=== PATIENT | male | born 1970 | race Caucasian/White ===

== ENCOUNTER 2018-11-09 09:00 | Outpatient (RCR) | payer OTHER, MEDICAID, SELFPAY ==
--- NOTE | 2018-10-03 12:56 | PT.OIE ---
Current Diagnoses Malignant neoplasm of urinary organ, unspecified (09/28/18) Provider Visit Care Team Role Provider Type Prashant Felix MD Family Provider Physician Primary Care Provider Specialty: Family Practice Address: [address] [place] [address], [id number] Email: JEY Amado Attending Provider Non-Staff Specialty: Medical Address: [address] [place] [address], [place], [phone] Email: Physical Therapy Initial Evaluation PT-OP-A Visit Information Start: 10/02/18 17:03 Freq: Status: Active Protocol: Document 09/28/18 09:00 [facility] (Rec: 10/02/18 17:34 [facility] [email or web address]) Out-Patient Physical Therapy Visit Information Visit Information Visit Type Initial Evaluation Visit Start Time 09:00 Visit Stop Time 09:45 Total Visit Minutes 45 Visit Number 1 Evaluation Information Evaluation Date 09/28/18 PT-OP-B Current Condition Start: 10/02/18 17:03 Freq: Status: Active Protocol: Document 09/28/18 09:00 [facility] (Rec: 10/02/18 17:34 [facility] [email or web address]) Current Condition History of Current Condition Onset Date June 2017 Current Complaints urinary urgency and frequency History of Current Condition 48 year old male who is being treated for stage 4 bladder cancer. The patient was previously seen in PT one year ago and was sent for further testing due to the nature of his symptoms. He is currently in a clinical trial with [facility] and is taking a targeted chemo therapy drug. This he notes is working for him and as of the last scan that was done the cancer was 2/3 amount reduced. He reports that his urinary symptoms are much improved and he is only getting up 2-3 times per night now. This current treatment took awhile to get to as he did a trial of Chemo and radiation at [facility] however his cancer was spreading and he was referred to [facility]. During this time the cancer spread to his right pelvis and he sustained a pelvic fracture. He did receive PT in [place] for this fracture and he is feeling overall stronger. He reprots he was able to compete a 7 mile hike a few weeks ago. He does note tightness in the groin region and is unable to sit cross legged like he used to be able to due. His last radiation was performed in november. Future Testing and Treatments Planned bladder scans planned for continued watch on the cancer Treatment Goals Patient/Caregiver Goals To reduce tightness of the pelvis region and continue to strengthen s/p pelvic fracture and to continue to reduce voiding frequency and urgency PT-OP-F Manual Assessment Start: 10/02/18 17:03 Freq: Status: Active Protocol: Document 09/28/18 09:00 [facility] (Rec: 10/02/18 17:34 [facility] [email or web address]) Manual Assessments Soft Tissue Assessment Soft Tissue Mobility Assessment myofascial tightness across the suprapubic fascia and lower abdominal wall Other Manual Assessments Other Manual Assessments decreased flexibility of the right iliopsoas and right adductors PT-OP-I Pelvic Floor Start: 10/02/18 17:03 Freq: Status: Active Protocol: Document 09/28/18 09:00 [facility] (Rec: 10/02/18 17:34 [facility] [email or web address]) Pelvic Floor Assessment Urine Urinary Symptoms Urge Sensation PT-OP-M Strength Start: 10/03/18 11:57 Freq: Status: Active Protocol: Document 09/28/18 11:57 [facility] (Rec: 10/03/18 11:58 [facility] [email or web address]) Hip Strength Hip Manual Muscle Testing Right Extension (S1) 4 Good Abduction 3+ Fair+ External Rotation 3+ Fair+ Knee Strength Knee Manual Muscle Testing Right Flexion (S2) 4- Good- PT-OP-Q Treatments Start: 10/02/18 17:03 Freq: Status: Active Protocol: Document 09/28/18 11:55 [facility] (Rec: 10/03/18 11:56 [facility] [email or web address]) Therapeutic Exercises Other Exercises 4 Other Exercise Name prone hip extension 3 Other Exercise Name prone press up 2 Other Exercise Name laina stretch 1 Other Exercise Name half kneeling hip flexor stretch PT-OP-T Assessment and Plan Start: 10/02/18 17:03 Freq: Status: Active Protocol: Document 09/28/18 09:00 [facility] (Rec: 10/02/18 17:34 [facility] [email or web address]) Physical Therapy Assessment Rehab Potential Rehabilitation Potential Good Evaluation Complexity Number of Personal Factors/Comorbidities 0 Number of Body Systems Impaired 1-2 Clinical Presentation at Evaluation Stable Impairments Impairments Activity Tolerance Gait Soft Tissue Mobility Strength Tone Goals Three Impairment myofascial tightness and restrictions across the abdominal fascia Retirement Goal (LTG) improve myofascial mobility with stretches across the abdominal fascia LTG Duration 8 weeks Two Impairment decreased flexibility of the right iliopsoas and adductors Short Term Goal (STG) Ottoniel is instructed in a home flexibility program to improve length of the iliopsoas and adductors STG Duration 6 weeks One Impairment urinary frequency/urgency with Ottoniel waking up 3-4 times/ night to void [employer] Machine [employer]uer Goal (LTG) Ottoniel reports decreased frequency and urgency and is waking only 1 time per night LTG Duration 8 weeks Assessment Summary Assessment Ottoniel presents to Physical therapy with symptoms of urinary frequency and urgency with Metastasized bladder cancer. He is currenty undergoing a clinical trial of target chemotherapy for the bladder cancer and his symptoms are improving. He reports that even from a month ago when he made his PT appointment his symptoms of frequency and urgency are reducing. He presents with a tightness across the suprapubic and lower abdominal wall myofascial tissue. He does have weakness in the right gluteus medius and gluteus sabino that is residual from his pelvic fracture and he is tighter in the right iliopsas and adductor musculature. He is able to faciltate a pelvic floor contraction, internal assessment was not performed today. Treatment will focus on stretches for the abdominal wall and hip musculature, bladder retraining, urge deference tech, and hip strengthening Physical Therapy Plan Frequency and Duration Frequency of Treatment 1x/Week Duration of Treatment 8 weeks Plan of Care Start Date 09/28/18 Plan of Care End Date 11/23/18 Therapeutic Interventions Therapeutic Interventions Home Exercise Program Manual Therapy Neuromuscular Re-education Patient/Caregiver Education Self-Care/Home Management Therapeutic Exercises Modalities Biofeedback
--- NOTE | 2018-10-03 12:57 | PT.OPPOC ---
Current Diagnoses Malignant neoplasm of urinary organ, unspecified (09/28/18) Provider Visit Care Team Role Provider Type Prashant Felix MD Family Provider Physician Primary Care Provider Specialty: Family Practice Address: [address] [place] [address], [id number] Email: JEY Amado Attending Provider Non-Staff Specialty: Medical Address: [address] [place] [address], [phone] Email: Plan Of Care PT-OP-T Assessment and Plan Start: 10/02/18 17:03 Freq: Status: Active Protocol: Document 09/28/18 09:00 [facility] (Rec: 10/02/18 17:34 [facility] [email or web address]) Physical Therapy Assessment Rehab Potential Rehabilitation Potential Good Evaluation Complexity Number of Personal Factors/Comorbidities 0 Number of Body Systems Impaired 1-2 Clinical Presentation at Evaluation Stable Impairments Impairments Activity Tolerance Gait Soft Tissue Mobility Strength Tone Goals Three Impairment myofascial tightness and restrictions across the abdominal fascia Parlor Maid Goal (LTG) improve myofascial mobility with stretches across the abdominal fascia LTG Duration 8 weeks Two Impairment decreased flexibility of the right iliopsoas and adductors Short Term Goal (STG) Ottoniel is instructed in a home flexibility program to improve length of the iliopsoas and adductors STG Duration 6 weeks One Impairment urinary frequency/urgency with Ottoniel waking up 3-4 times/ night to void Penitentiary Goal (LTG) Ottoniel reports decreased frequency and urgency and is waking only 1 time per night LTG Duration 8 weeks Assessment Summary Assessment Ottoniel presents to Physical therapy with symptoms of urinary frequency and urgency with Metastasized bladder cancer. He is currenty undergoing a clinical trial of target chemotherapy for the bladder cancer and his symptoms are improving. He reports that even from a month ago when he made his PT appointment his symptoms of frequency and urgency are reducing. He presents with a tightness across the suprapubic and lower abdominal wall myofascial tissue. He does have weakness in the right gluteus medius and gluteus sabino that is residual from his pelvic fracture and he is tighter in the right iliopsas and adductor musculature. He is able to faciltate a pelvic floor contraction, internal assessment was not performed today. Treatment will focus on stretches for the abdominal wall and hip musculature, bladder retraining, urge deference tech, and hip strengthening Physical Therapy Plan Frequency and Duration Frequency of Treatment 1x/Week Duration of Treatment 8 weeks Plan of Care Start Date 09/28/18 Plan of Care End Date 11/23/18 Therapeutic Interventions Therapeutic Interventions Home Exercise Program Manual Therapy Neuromuscular Re-education Patient/Caregiver Education Self-Care/Home Management Therapeutic Exercises Modalities Biofeedback Plan of Care Dates Plan of Care Start Date 09/28/18 Plan of Care End Date 11/23/18 Please Sign and Return: I have reviewed this Plan of Care and certify that the skilled therapy services above are required to meet the patient?s needs. Physician Signature Date Printed Name and Credentials Clinical Instructor Signature Printed Name and Credentials
--- NOTE | 2018-10-17 11:44 | PT.OTN ---
Current Diagnoses Malignant neoplasm of urinary organ, unspecified (10/17/18) Physical Therapy Treatment Note PT-OP-A Visit Information Start: 10/02/18 17:03 Freq: Status: Active Protocol: Document 10/17/18 11:34 [facility] (Rec: 10/17/18 11:44 [facility] [email or web address]) Out-Patient Physical Therapy Visit Information Visit Information Visit Type Treatment Note Visit Start Time 10:30 Visit Stop Time 11:15 Total Visit Minutes 45 Visit Number 2 PT-OP-B Current Condition Start: 10/02/18 17:03 Freq: Status: Active Protocol: Document 09/28/18 09:00 [facility] (Rec: 10/02/18 17:34 [facility] [email or web address]) Current Condition History of Current Condition Onset Date June 2017 Current Complaints urinary urgency and frequency History of Current Condition 48 year old male who is being treated for stage 4 bladder cancer. The patient was previously seen in PT one year ago and was sent for further testing due to the nature of his symptoms. He is currently in a clinical trial with [facility] and is taking a targeted chemo therapy drug. This he notes is working for him and as of the last scan that was done the cancer was 2/3 amount reduced. He reports that his urinary symptoms are much improved and he is only getting up 2-3 times per night now. This current treatment took awhile to get to as he did a trial of Chemo and radiation at [facility] however his cancer was spreading and he was referred to [facility]. During this time the cancer spread to his right pelvis and he sustained a pelvic fracture. He did receive PT in [place] for this fracture and he is feeling overall stronger. He reprots he was able to compete a 7 mile hike a few weeks ago. He does note tightness in the groin region and is unable to sit cross legged like he used to be able to due. His last radiation was performed in november. Future Testing and Treatments Planned bladder scans planned for continued watch on the cancer Treatment Goals Patient/Caregiver Goals To reduce tightness of the pelvis region and continue to strengthen s/p pelvic fracture and to continue to reduce voiding frequency and urgency PT-OP-F Manual Assessment Start: 10/02/18 17:03 Freq: Status: Active Protocol: Document 09/28/18 09:00 [facility] (Rec: 10/02/18 17:34 [facility] [email or web address]) Manual Assessments Soft Tissue Assessment Soft Tissue Mobility Assessment myofascial tightness across the suprapubic fascia and lower abdominal wall Other Manual Assessments Other Manual Assessments decreased flexibility of the right iliopsoas and right adductors PT-OP-I Pelvic Floor Start: 10/02/18 17:03 Freq: Status: Active Protocol: Document 09/28/18 09:00 [facility] (Rec: 10/02/18 17:34 [facility] [email or web address]) Pelvic Floor Assessment Urine Urinary Symptoms Urge Sensation PT-OP-M Strength Start: 10/03/18 11:57 Freq: Status: Active Protocol: Document 09/28/18 11:57 [facility] (Rec: 10/03/18 11:58 [facility] [email or web address]) Hip Strength Hip Manual Muscle Testing Right Extension (S1) 4 Good Abduction 3+ Fair+ External Rotation 3+ Fair+ Knee Strength Knee Manual Muscle Testing Right Flexion (S2) 4- Good- PT-OP-Q Treatments Start: 10/02/18 17:03 Freq: Status: Active Protocol: Document 10/17/18 11:34 [facility] (Rec: 10/17/18 11:44 [facility] [email or web address]) Therapeutic Exercises Supine Exercises 1 Supine Exercise Name pelvic floor long holds 10 seconds on 10 seconds off Reps/Minutes x 10 Comments focus on the relaxation Sidelying Exercises 1 Sidelying Exercise Name clam shells Reps/Minutes 3 x 10 reps Other Exercises 7 Other Exercise Name foam roll stretch Reps/Minutes 2-3 minute hold 6 Other Exercise Name quadraped with TA engagement and opp arm opp leg Reps/Minutes x 10 5 Other Exercise Name quadruped cat cow Reps/Minutes x 10 4 Other Exercise Name prone hip extension 3 Other Exercise Name prone press up 2 Other Exercise Name laina stretch 1 Other Exercise Name half kneeling hip flexor stretch PT-OP-T Assessment and Plan Start: 10/02/18 17:03 Freq: Status: Active Protocol: Document 10/17/18 11:34 [facility] (Rec: 10/17/18 11:44 [facility] [email or web address]) Physical Therapy Assessment Assessment Summary Assessment elevated resting tone initially on EMG biofeedback at 5.0 uv, decreased endurance holding pelvic floor contractions. Resting tone did decrease with EMG biofeedback and awareness Ottoniel could really feel all the stretches to open up the anterior pelvic fascia. The plan is for him to come in every few weeks due to [place] [address] and he felt that he could work on the exercises and then check back in for modifications or additions to his program Physical Therapy Plan Frequency and Duration Frequency of Treatment 1x/Week Duration of Treatment 8 weeks Plan of Care Start Date 09/28/18 Plan of Care End Date 11/23/18 Therapeutic Interventions Therapeutic Interventions Home Exercise Program Manual Therapy Neuromuscular Re-education Patient/Caregiver Education Self-Care/Home Management Therapeutic Exercises Modalities Biofeedback Next Visit Focus/Plan Next Note Type Treatment Note Next Visit Plan review home exercise program and recheck resting tone of the pelvic floor musculature next visit
--- NOTE | 2018-11-09 13:10 | PT.OTN ---
Current Diagnoses Malignant neoplasm of urinary organ, unspecified (11/09/18) Physical Therapy Treatment Note PT-OP-A Visit Information Start: 10/02/18 17:03 Freq: Status: Active Protocol: Document 11/09/18 13:05 [facility] (Rec: 11/09/18 13:10 [facility] [email or web address]) Out-Patient Physical Therapy Visit Information Visit Information Visit Type Treatment Note Visit Start Time 09:00 Visit Stop Time 09:45 Total Visit Minutes 45 Visit Number 3 Evaluation Information Evaluation Date 09/28/18 PT-OP-B Current Condition Start: 10/02/18 17:03 Freq: Status: Active Protocol: Document 09/28/18 09:00 [facility] (Rec: 10/02/18 17:34 [facility] [email or web address]) Current Condition History of Current Condition Onset Date June 2017 Current Complaints urinary urgency and frequency History of Current Condition 48 year old male who is being treated for stage 4 bladder cancer. The patient was previously seen in PT one year ago and was sent for further testing due to the nature of his symptoms. He is currently in a clinical trial with [facility] and is taking a targeted chemo therapy drug. This he notes is working for him and as of the last scan that was done the cancer was 2/3 amount reduced. He reports that his urinary symptoms are much improved and he is only getting up 2-3 times per night now. This current treatment took awhile to get to as he did a trial of Chemo and radiation at [facility] however his cancer was spreading and he was referred to [facility]. During this time the cancer spread to his right pelvis and he sustained a pelvic fracture. He did receive PT in [place] for this fracture and he is feeling overall stronger. He reprots he was able to compete a 7 mile hike a few weeks ago. He does note tightness in the groin region and is unable to sit cross legged like he used to be able to due. His last radiation was performed in november. Future Testing and Treatments Planned bladder scans planned for continued watch on the cancer Treatment Goals Patient/Caregiver Goals To reduce tightness of the pelvis region and continue to strengthen s/p pelvic fracture and to continue to reduce voiding frequency and urgency PT-OP-F Manual Assessment Start: 10/02/18 17:03 Freq: Status: Active Protocol: Document 09/28/18 09:00 [facility] (Rec: 10/02/18 17:34 [facility] [email or web address]) Manual Assessments Soft Tissue Assessment Soft Tissue Mobility Assessment myofascial tightness across the suprapubic fascia and lower abdominal wall Other Manual Assessments Other Manual Assessments decreased flexibility of the right iliopsoas and right adductors PT-OP-I Pelvic Floor Start: 10/02/18 17:03 Freq: Status: Active Protocol: Document 09/28/18 09:00 [facility] (Rec: 10/02/18 17:34 [facility] [email or web address]) Pelvic Floor Assessment Urine Urinary Symptoms Urge Sensation PT-OP-M Strength Start: 10/03/18 11:57 Freq: Status: Active Protocol: Document 09/28/18 11:57 [facility] (Rec: 10/03/18 11:58 [facility] [email or web address]) Hip Strength Hip Manual Muscle Testing Right Extension (S1) 4 Good Abduction 3+ Fair+ External Rotation 3+ Fair+ Knee Strength Knee Manual Muscle Testing Right Flexion (S2) 4- Good- PT-OP-Q Treatments Start: 10/02/18 17:03 Freq: Status: Active Protocol: Document 11/09/18 13:05 [facility] (Rec: 11/09/18 13:10 [facility] [email or web address]) Therapeutic Exercises Supine Exercises 1 Supine Exercise Name pelvic floor long holds 10 seconds on 10 seconds off Reps/Minutes x 5 Comments in prone Prone Exercises 1 Prone Exercise Name cobra stretch Sidelying Exercises 1 Sidelying Exercise Name clam shells Reps/Minutes 3 x 10 reps Other Exercises 9 Other Exercise Name single leg squats with cables for support 8 Other Exercise Name standing squats 7 Other Exercise Name foam roll stretch Reps/Minutes 2-3 minute hold 6 Other Exercise Name quadraped with TA engagement and opp arm opp leg Reps/Minutes x 10 5 Other Exercise Name quadruped cat cow Reps/Minutes x 10 1 Other Exercise Name half kneeling hip flexor stretch PT-OP-T Assessment and Plan Start: 10/02/18 17:03 Freq: Status: Active Protocol: Document 11/09/18 13:05 [facility] (Rec: 11/09/18 13:10 [facility] [email or web address]) Physical Therapy Assessment Assessment Summary Assessment Ottoniel did not have his electrode with him today so EMG biofeedback was not performed. He is getting a good amount of stretch from the foam roll and from cobra stretch. He is still having bladder issues but has been working on delaying the need to void Physical Therapy Plan Frequency and Duration Frequency of Treatment 1x/Week Duration of Treatment 8 weeks Plan of Care Start Date 09/28/18 Plan of Care End Date 11/23/18 Therapeutic Interventions Therapeutic Interventions Home Exercise Program Manual Therapy Neuromuscular Re-education Patient/Caregiver Education Self-Care/Home Management Therapeutic Exercises Modalities Biofeedback Next Visit Focus/Plan Next Note Type Treatment Note Next Visit Plan review home exercise program and recheck resting tone of the pelvic floor musculature next visit
--- NOTE | 2019-10-08 12:09 | PT.OPDS ---
Current Diagnoses Malignant neoplasm of urinary organ, unspecified (11/09/18) Visit Care Team Role Provider Type Prashant Felix MD Family Provider Physician Primary Care Provider Specialty: Family Practice Address: [address] [place] [address], [id number] Email: JEY Amado Attending Provider Non-Staff Specialty: Medical Address: [address] [place] [address], [place], [address] Email: Visit Number Visit Number 3 Discharge Summary PT-OP-B Current Condition Start: 10/02/18 17:03 Freq: Status: Active Protocol: Document 09/28/18 09:00 [facility] (Rec: 10/02/18 17:34 AM[facility] [email or web address]) Current Condition History of Current Condition Onset Date June 2017 Current Complaints urinary urgency and frequency History of Current Condition 48 year old male who is being treated for stage 4 bladder cancer. The patient was previously seen in PT one year ago and was sent for further testing due to the nature of his symptoms. He is currently in a clinical trial with [facility] and is taking a targeted chemo therapy drug. This he notes is working for him and as of the last scan that was done the cancer was 2/3 amount reduced. He reports that his urinary symptoms are much improved and he is only getting up 2-3 times per night now. This current treatment took awhile to get to as he did a trial of Chemo and radiation at [facility] however his cancer was spreading and he was referred to [facility]. During this time the cancer spread to his right pelvis and he sustained a pelvic fracture. He did receive PT in [place] for this fracture and he is feeling overall stronger. He reprots he was able to compete a 7 mile hike a few weeks ago. He does note tightness in the groin region and is unable to sit cross legged like he used to be able to due. His last radiation was performed in november. Future Testing and Treatments Planned bladder scans planned for continued watch on the cancer Treatment Goals Patient/Caregiver Goals To reduce tightness of the pelvis region and continue to strengthen s/p pelvic fracture and to continue to reduce voiding frequency and urgency PT-OP-F Manual Assessment Start: 10/02/18 17:03 Freq: Status: Active Protocol: Document 09/28/18 09:00 AM[facility] (Rec: 10/02/18 17:34 AMH [email or web address]) Manual Assessments Soft Tissue Assessment Soft Tissue Mobility Assessment myofascial tightness across the suprapubic fascia and lower abdominal wall Other Manual Assessments Other Manual Assessments decreased flexibility of the right iliopsoas and right adductors PT-OP-I Pelvic Floor Start: 10/02/18 17:03 Freq: Status: Active Protocol: Document 09/28/18 09:00 AMH (Rec: 10/02/18 17:34 AMH [email or web address]) Pelvic Floor Assessment Urine Urinary Symptoms Urge Sensation PT-OP-M Strength Start: 10/03/18 11:57 Freq: Status: Active Protocol: Document 09/28/18 11:57 AMH (Rec: 10/03/18 11:58 AMH [email or web address]) Hip Strength Hip Manual Muscle Testing Right Extension (S1) 4 Good Abduction 3+ Fair+ External Rotation 3+ Fair+ Knee Strength Knee Manual Muscle Testing Right Flexion (S2) 4- Good- PT-OP-T Assessment and Plan Start: 10/02/18 17:03 Freq: Status: Active Protocol: Document 10/08/19 12:09 AMH (Rec: 10/08/19 12:09 AMH [email or web address]) Physical Therapy Plan Discharge Physical Therapy Discharge Reasons No Longer Attending PT Discharge Comments pt has not been seen in PT in the last 10 months. he will be discharged at this time
== END 2019-10-12 11:26 ==
LOC: PHYS 09:00
PROVIDERS: Family Provider Family Medicine; PCP Family Medicine; Visit Provider Nurse Practitioner
DX: C68.9 Malignant neoplasm of urinary organ, unspecified (principal)
CPT/HCPCS: 97110; 97161

== ENCOUNTER 2019-09-10 14:43 | Emergency (ER) | payer OTHER, MEDICAID, SELFPAY ==
[2019-09-10 14:52] VITALS: BP 97/65; PULSE 105; RESP 18; TEMP 35.8; O2SAT 97; BMI 23.5
[2019-09-10 15:28] LABS: Hematocrit 28.5 % (41-53); Hemoglobin 9.2 g/dL (13.5-17.5); Mean Corpuscular HGB Conc 32.3 % (30-36); Mean Corpuscular Hemoglobin 28.6 PG (26-34); Mean Corpuscular Volume 88.6 fL (80-100); Platelet Count 309 X10^3/uL (150-400); Red Blood Cell Count 3.22 X10^6/uL (4.5-5.9); Red Cell Distribution Width 16.7 % (11.6-14.8)
[2019-09-10 15:31] LABS: Add Manual Diff / Slide Review YES; White Blood Cell Count 50.2 X10^3/uL (4.5-11.0)
--- NOTE | 2019-09-10 15:33 | ED.EXTPRO ---
HPI - Extremity Problem General Chief complaint: Extremity Problem,Nontraumatic Stated complaint: Swelling in Right Leg, general swelling all over Time Seen by Provider: 09/10/19 15:18 Source: patient Mode of arrival: Ambulatory Limitations: no limitations History of Present Illness HPI Narrative: Patient is a 49-year-old male. 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 He has been followed by [facility]. He came into the emergency department today under recommendation by his oncologist for evaluation of bilateral with right being greater than left lower extremity swelling. Patient has also noticed abdominal swelling. This abdominal swelling is causing to have some shortness of breath. His who is at bedside also states that she feels like he is somewhat jaundiced. He recently had a workup by his oncologist for fevers. His states that this turned up no specific results. The been doing ibuprofen for the fevers. They state that he has an appointment on Tuesday for CT scans to evaluate the progression of his disease. It on a follow-up approximately 1 week from now with her oncologist. They stated that they came in today for ultrasound of his lower extremities to see whether not the swelling is related to blood clots. Related Data Home Medications Medication Instructions Recorded Confirmed ibuprofen 400 mg PO BID #0 07/01/17 09/10/19 ascorbic acid (vitamin C) 1,000 mg PO BID #0 08/05/17 09/10/19 cholecalciferol (vitamin D3) 400 unit PO QDAY #0 08/05/17 09/10/19 Probiotic 1 cap PO DAILY #0 08/16/17 09/10/19 furosemide 20 mg PO DAILY 09/10/19 09/10/19 naproxen 500 mg PO DAILY 09/10/19 09/10/19 pembrolizumab [Keytruda] 0 mg IV Q3W 09/10/19 09/10/19 simethicone 1 tab PO PRN PRN 09/10/19 09/10/19 Previous Rx's Medication Instructions Recorded lidocaine-prilocaine 1 jill TOPICAL PRN PRN #30 gm 08/10/17 Allergies Allergy/AdvReac Type Severity Reaction Status Date / Time No Known Drug Allergies Allergy Unknown Verified 09/10/19 14:52 [NO KNOWN DRUG ALLERGIES] LAUNDRY SOAP Allergy Intermediate SKIN Uncoded 09/10/19 14:52 IRRITATION, HIVES Review of Systems Constitutional Constitutional: Denies fever(s) and Reports lethargy Cardiovascular Cardiovascular: Denies chest pain and Reports dyspnea Respiratory Respiratory: Reports dyspnea Gastrointestinal Gastrointestinal: Reports abdominal pain, Reports bloating, Denies change in bowel habits, Denies nausea and Denies vomiting Genitourinary Comments: Swelling of his scrotum Musculoskeletal Musculoskeletal: Denies myalgias and Denies arthralgias Comments: Lower extremity swelling Integumentary/Breasts Comments: Jaundice Neurologic Neurologic: Denies behavioral changes Psychiatric Psychiatric: Denies behavioral changes Hematologic/Lymphatic Hematologic/Lymphatic: Denies easy bleeding and Denies easy bruising Patient History Medical History Medical History Bladder cancer (Inactive) Bladder cancer metastasized to liver (Inactive) Social History Social History Smoking Status: Never smoker Substance Use Type: does not use and marijuana Exam Initial Vital Signs Initial Vital Signs: Vital Signs Temperature 96.5 F L 09/10/19 14:52 Pulse Rate 105 H 09/10/19 14:52 Respiratory Rate 18 09/10/19 14:52 Blood Pressure 97/65 09/10/19 14:52 Pulse Oximetry 97 09/10/19 14:52 Const General: cooperative and ill appearing Orientation: alert, awake and oriented x3 HENMT Head: normal to inspection and normocephalic Resp Effort & Inspection: no respiratory distress and tachypneic Auscultation: clear to auscultation bilaterally Cardio Rate: tachycardic Rhythm: regular rhythm GI Inspection: distended Palpation: firm, No guarding, hepatomegaly and No tender Skin General: jaundice Lesions: no lesions Rashes: no rashes Neuro General: alert, awake and oriented x3 Cognition: normal cognition Speech: speech normal Extrem General: capillary refill normal and edema Psych Appearance: grossly normal and well kempt Course Orders Ordered: ED Orders 09/10/19 15:13 Complete Blood Count AUTO DIFF Stat Comprehensive Metabolic Panel Stat Lipase Stat Partial Thromboplastin Time Stat Prothrombin Time INR Stat 09/10/19 15:34 US periph venous low extrem bi Stat 09/10/19 15:43 CT abdomen pelvis w con Stat 09/10/19 16:25 Ammonia (NH3) Stat Discontinued Medications Heparin Sodium (Porcine) (Heparin Lock Port) 500 unit IV PRN PRN PRN Reason: Flush Last Admin: 09/10/19 17:34 Dose: 500 unit Documented by: KATHERINE Sodium Chloride (Normal Saline 0.9%) 500 mls @ 1,000 mls/hr IV BOLUS ONE Stop: 09/10/19 16:28 Last Infusion: 09/10/19 17:34 Dose: 0 mls/hr Documented by: Admin: 09/10/19 16:45 Dose: 1,000 mls/hr Documented by: BARBI Vital Signs Vital signs: Vital Signs - 8 hr 09/10/19 14:52 09/10/19 17:40 Temperature 96.5 F L Pulse Rate 105 H 100 H Respiratory Rate 18 18 Blood Pressure 97/65 97/64 Pulse Oximetry 97 97 MDM - Extremity (Nontraumatic) Lab Data Result diagrams: 09/10/19 15:13 09/10/19 15:13 Labs: Lab Results 09/10/19 09/10/19 09/10/19 Range/Units 15:13 15:13 15:13 WBC 50.2 H* (4.5-11.0) X10^3/uL RBC 3.22 L (4.5-5.9) X10^6/uL Hgb 9.2 L (13.5-17.5) g/dL Hct 28.5 L (41-53) % MCV 88.6 (80-100) fL MCH 28.6 (26-34) PG MCHC 32.3 (30-36) % RDW 16.7 H (11.6-14.8) % Plt Count 309 (150-400) X10^3/uL Neut % (Auto) Not Reportable Lymph % (Auto) Not Reportable [place] % (Auto) Not Reportable Eos % (Auto) Not Reportable Baso % (Auto) Not Reportable Lymph # (Auto) Not Reportable [place] # (Auto) Not Reportable Baso # (Auto) Not Reportable Total Counted 100 Seg Neutrophils % 88.0 H (38-70) % Band Neutrophils % 2.0 L (3-7) % Lymphocytes % (Manual) 4.0 L (25-45) % Atypical Lymphs % 3.0 H ( - 0) % Monocytes % (Manual) 3.0 (2-11) % Neutrophils # (Manual) 48045 H (7605-7473) /uL RBC Morphology Not Reportable Anisocytosis 1+ H PT 16.7 H (10.1-12.7) SECONDS INR 1.4 H (0.9-1.3) APTT 30 (26.4-36.2) SECONDS Sodium 129 L (137-145) mmol/L Potassium 5.6 H (3.4-5.1) mmol/L Chloride 95 L (98-107) mmol/L Carbon Dioxide 17 L (22-32) mmol/L BUN 36 H (9-20) mg/dL Creatinine 1.40 H (0.66-1.25) mg/dL Estimated GFR 53.9 L (>60) mL/min BUN/Creatinine Ratio 25.7 H (6-22) Glucose 84 (70-100) mg/dL Calcium 8.8 (8.4-10.2) mg/dL Total Bilirubin 4.2 H (0.2-1.3) mg/dL AST 165 H (17-59) IU/L ALT 54 (21-72) IU/L Alkaline Phosphatase 549 H (38-126) U/L Ammonia (9-30) umol/L Total Protein 5.6 L (6.3-8.2) g/dL Albumin 2.6 L (3.5-5.0) g/dL Globulin 3.0 (1.7-4.1) g/dL Albumin/Globulin Ratio 0.9 L (1.0-2.8) Lipase 14 L (23-300) U/L /14/19 Range/Units 16:25 WBC (4.5-11.0) X10^3/uL RBC (4.5-5.9) X10^6/uL Hgb (13.5-17.5) g/dL Hct (41-53) % MCV (80-100) fL MCH (26-34) PG MCHC (30-36) % RDW (11.6-14.8) % Plt Count (150-400) X10^3/uL Neut % (Auto) Lymph % (Auto) [place] % (Auto) Eos % (Auto) Baso % (Auto) Lymph # (Auto) [place] # (Auto) Baso # (Auto) Total Counted Seg Neutrophils % (38-70) % Band Neutrophils % (3-7) % Lymphocytes % (Manual) (25-45) % Atypical Lymphs % ( - 0) % Monocytes % (Manual) (2-11) % Neutrophils # (Manual) (4064-9845) /uL RBC Morphology Anisocytosis PT (10.1-12.7) SECONDS INR (0.9-1.3) APTT (26.4-36.2) SECONDS Sodium (137-145) mmol/L Potassium (3.4-5.1) mmol/L Chloride (98-107) mmol/L Carbon Dioxide (22-32) mmol/L BUN (9-20) mg/dL Creatinine (0.66-1.25) mg/dL Estimated GFR (>60) mL/min BUN/Creatinine Ratio (6-22) Glucose (70-100) mg/dL Calcium (8.4-10.2) mg/dL Total Bilirubin (0.2-1.3) mg/dL AST (17-59) IU/L ALT (21-72) IU/L Alkaline Phosphatase (38-126) U/L Ammonia < 9.0 L (9-30) umol/L Total Protein (6.3-8.2) g/dL Albumin (3.5-5.0) g/dL Globulin (1.7-4.1) g/dL Albumin/Globulin Ratio (1.0-2.8) Lipase (23-300) U/L Imaging Data Venous US: Radiologist's impression: [address] [address] Ultrasound Report Signed Patient: RickOttoniel PMR#: [id number] : 1970Acct:[id number] Age/Sex: 49 / MDate of Service: 09/10/19 Loc: ED Accession Number: [id number] Procedure: US periph venous low extrem bi Ordering Provider: Ottoniel Blankenship D.O. PROCEDURE: US PERIPH VENOUS LOW EXTREM BI INDICATIONS: EVALUATE FOR DEEP VEIN THROMBOSIS TECHNIQUE: Real-time imaging, as well as color and pulse Doppler interrogation, were performed of the deep veins of both legs from the inguinal ligament to the popliteal fossa. COMPARISON: [facility], CT, CT ABDOMEN PELVIS W CON, 09/10/2019, 16:17. FINDINGS: Right: The common femoral, femoral and popliteal veins are normally compressible, and free of intraluminal thrombus. Color and pulse Doppler demonstrate normal phasic intravascular flow. There is normal augmentation response to distal compression maneuver. There is right inguinal adenopathy. Findings include a round right inguinal lymph node measuring 1.2 cm in maximal diameter which has a probable malignant appearance. There is lack of fatty hilum. Left: The common femoral, femoral and popliteal veins are normally compressible, and free of intraluminal thrombus. Color and pulse Doppler demonstrate normal phasic intravascular flow. There is normal augmentation response to distal compression maneuver. There is left inguinal adenopathy. Findings include a left inguinal lymph node which is somewhat round. Although it does have a fatty hilum, in lymph node appears to likely be at least partially replaced by tumor. This lymph node measures 1.6 x 1.0 cm. IMPRESSION: 1. No evidence of DVT in the bilateral lower extremities. 2. Probable bilateral malignant inguinal adenopathy. Comment: It is noted that on CT, the intrahepatic portion of the inferior vena cava is significantly compressed by marked hepatic tumor involvement and marked hepatomegaly. Dictated by: Chilango Inman M.D. on 09/10/2019 at 16:52 Approved by: Chilango Inman M.D. on 09/10/2019 at 16:58 CT scan - abdomen: Radiologist's impression: [place] [address] CT Scan Report Signed Patient: Ottoniel Cabrera PMR#: [id number] : 1970Acct:[id number] Age/Sex: 49 / MDate of Service: 09/10/19 Loc: ED Accession Number: [id number] Procedure: CT abdomen pelvis w con Ordering Provider: Ottoniel Blankenship D.O. PROCEDURE: CT ABDOMEN PELVIS W CON INDICATIONS: Abdominal distention, hx of bldder CA with liver mets TECHNIQUE: After the administration of intravenous contrast, 5 mm thick sections acquired from the diaphragm to the symphysis. 5 mm coronal and sagittal reformats were acquired. For radiation dose reduction, the following was used: automated exposure control, adjustment of mA and/or kV according to patient size. COMPARISON: [facility], CT, CT CHEST ABDOMEN PELVIS WITH CONTRAST, 03/30/2018, 12:50. FINDINGS: Image quality: Excellent. ABDOMEN: Lung bases: Minimal left pleural effusion. Calcified granuloma, extreme left lung base. Heart size is normal. Minimal pericardial effusion. Solid organs: Marked interval progression of hepatic metastatic disease. Tumor has replaced much of the liver, involving both lobes there is resultant marked hepatomegaly which has developed. Mild left-sided intrahepatic biliary ductal dilatation has developed. Gallbladder is unremarkable. Pancreas enhances normally. Spleen is normal in size and enhancement. No adrenal nodules. Kidneys demonstrate normal size and enhancement, without hydronephrosis. Peritoneum and bowel: Bowel loops demonstrate normal wall thickness and caliber. A anterior peritoneal mass as significantly increased in size. It previously measured 4.4 x 5.1 cm. It now measures 5.6 x 6.5 cm. Mild ascites has developed in the abdomen and pelvis. Nodes and vessels: Extensive periportal and peripancreatic adenopathy has developed. Aorta and inferior vena cava are normal in size. There is marked compression of the intrahepatic portion of the inferior vena cava. Below the liver, the inferior vena cava is not dilated. Miscellaneous: No ventral hernias. Anasarca has developed PELVIS: Genitourinary: Bladder wall thickness is normal. Miscellaneous: Small inguinal hernias. Scrotal and penile edema. Bones: Previously a lytic disease involving the right symphysis pubis and right acetabulum and right iliac wing is now sclerotic. There is mixed lytic and sclerotic disease involving the medial right iliac bone. There is predominantly sclerotic disease involving the left iliac bone. IMPRESSION: 1. Interval development of extensive liver metastatic disease with marked enlargement of the liver and obstruction of left-sided intrahepatic bile ducts. 2. Development of periportal and peripancreatic adenopathy. 3. Interval increase in size of anterior pelvic peritoneal mass. 4. Bony metastatic disease in the pelvis is now predominantly sclerotic. 5. Mild ascites. 6. Compression of the intrahepatic portion of the inferior vena cava. 7. Anasarca, scrotal and penile edema. Dictated by: Chilango Inman M.D. on 09/10/2019 at 16:39 Approved by: Chilango Inman M.D. on 09/10/2019 at 16:52 MDM Narrative Medical decision making narrative: Patient has known bladder cancer with metastatic disease to his liver. He was somewhat jaundiced here in the emergency department. Was tachypneic however was not in any respiratory distress. He does have bilateral lower extremity swelling with right being greater than left. He also has abdominal distention. The right-sided his abdomen is firm the left side is soft. I informed the patient that I felt that clots in his lower extremities was unlikely. I felt that the lower extremity swelling that also involves his scrotum is most likely related to an enlarged liver pressing on his IVC causing fluid overload. I did inform him that I felt that his abdominal distention was related to an enlarged liver and less likely ascites. I did tell him that we could do lower extremity ultrasounds to rule out DVTs. This was done and there were no DVTs in his lower extremity. We did discuss a CT scan of his abdomen to evaluate whether not the abdominal distention was related to an enlarged liver versus ascites. We did discuss that if it was ascites we could potentially do a paracentesis here in the emergency department to help with his shortness of breath. After they thought about it for a while they did agree to have the CT scan performed. This did show a large liver which was pressing on his IVC. There was minimal if any ascites present. He does have changes in his labs specifically an elevated white blood cell count. He also has a creatinine 1.4 and also bilirubin of 4. I did have a discussion with the patient's oncologist. After this discussion with the oncologist we feel that given his situation today and also his CT scan and lab findings that the patient's prognosis is poor. Patient's oncologist stated that he would be happy to see the patient in [place] tomorrow around noon. If the could not/did not want to travel to [place] he be happy to talk to the patient on the phone. He did have the patient's contact information. He did not feel the patient needed emergent admission to the hospital. I agree with this. Unfortunately there is not much more we can do in the emergency department. When had a long discussion with the patient and his regarding the CT scan findings and also the ultrasound findings and also his lab findings. I did inform him that the labs and the CT scan today were not reassuring. I did inform them of the discussion to have with his oncologist. I did inform them that they would be happy to see him tomorrow in [place]. The patient stated that he felt like he could go to [place] tomorrow for this appointment. He was given a copy of his labs and the CT scan any ultrasound in the reports to take with him. I did inform him that his oncologist would call him tomorrow morning to see what his decision of was as far as follow-up. Patient and his both expressed understanding and agreement with plan. Discharge Plan Departure Patient Disposition: Home Clinical Impression: Bladder cancer metastasized to liver Edema Qualifiers: Edema type: generalized Qualified Code(s): R60.1 - Generalized edema Discharge Date/Time: 09/10/19 17:40 Instructions: DI for Dependent Edema Activity Restrictions/Additional Instructions: Continue all of your medications as directed. Dr. Ornelas office should call you in the morning. They did state that they would be able to see you around noon tomorrow if you are able to make it to the [place] office. Otherwise they state that they can talk with you over the phone. If you have any concerns please contact our office. You can return to the emergency department at any time for new or worsening symptoms Prescriptions: No Action ibuprofen 200 MG tablet 400 mg PO BID Qty: 0 RF: 0 ascorbic acid (vitamin C) 500 MG tablet 1,000 mg PO BID Qty: 0 RF: 0 cholecalciferol (vitamin D3) 400 UNIT/1 ML drops 400 unit PO QDAY Qty: 0 RF: 0 lidocaine-prilocaine 2.5 %/2.5 % cream 1 jill Topical PRN PRNQty: 30 RF: 0 Probiotic 1 cap PO DAILY Qty: 0 RF: 0 furosemide 20 mg tablet 20 mg PO DAILY RF: 0 naproxen 500 mg tablet 500 mg PO DAILY RF: 0 Keytruda 25 mg/mL Solution 0 mg IV Q3W RF: 0 simethicone 1 tab PO PRN PRN (Reason: gas) RF: 0 Referrals: Prashant Felix MD [Primary Care Provider] -
[2019-09-10 15:35] LABS: INR 1.4 (0.9-1.3); Prothrombin Time 16.7 SECONDS (10.1-12.7)
[2019-09-10 15:38] LABS: PTT Partial Thromboplastin Tim 30 SECONDS (26.4-36.2)
[2019-09-10 15:43] LABS: Alanine Aminotransferase 54 IU/L (21-72); Albumin 2.6 g/dL (3.5-5.0); Albumin Globulin Ratio 0.9 (1.0-2.8); Alkaline Phosphatase 549 U/L (38-126); Aspartate Aminotransferase 165 IU/L (17-59); BUN Creatinine Ratio 25.7 (6-22); Bilirubin Total 4.2 mg/dL (0.2-1.3); Blood Urea Nitrogen 36 mg/dL (9-20); Calcium 8.8 mg/dL (8.4-10.2); Carbon Dioxide 17 mmol/L (22-32); Chloride 95 mmol/L (98-107); Estimated Glomerular Filt Rate 53.9 mL/min (>60); Glucose 84 mg/dL (70-100); HEMOLYSIS < 15 (0-50); Lipase 14 U/L (23-300); Sodium 129 mmol/L (137-145); Total Protein 5.6 g/dL (6.3-8.2)
--- NOTE | 2019-09-10 15:43 | DI.CT.S_ITS ---
PROCEDURE: CT ABDOMEN PELVIS W CON INDICATIONS: Abdominal distention, hx of bldder CA with liver mets TECHNIQUE: After the administration of intravenous contrast, 5 mm thick sections acquired from the diaphragm to the symphysis. 5 mm coronal and sagittal reformats were acquired. For radiation dose reduction, the following was used: automated exposure control, adjustment of mA and/or kV according to patient size. COMPARISON: [facility], CT, CT CHEST ABDOMEN PELVIS WITH CONTRAST, 03/30/2018, 12:50. FINDINGS: Image quality: Excellent. ABDOMEN: Lung bases: Minimal left pleural effusion. Calcified granuloma, extreme left lung base. Heart size is normal. Minimal pericardial effusion. Solid organs: Marked interval progression of hepatic metastatic disease. Tumor has replaced much of the liver, involving both lobes there is resultant marked hepatomegaly which has developed. Mild left-sided intrahepatic biliary ductal dilatation has developed. Gallbladder is unremarkable. Pancreas enhances normally. Spleen is normal in size and enhancement. No adrenal nodules. Kidneys demonstrate normal size and enhancement, without hydronephrosis. Peritoneum and bowel: Bowel loops demonstrate normal wall thickness and caliber. A anterior peritoneal mass as significantly increased in size. It previously measured 4.4 x 5.1 cm. It now measures 5.6 x 6.5 cm. Mild ascites has developed in the abdomen and pelvis. Nodes and vessels: Extensive periportal and peripancreatic adenopathy has developed. Aorta and inferior vena cava are normal in size. There is marked compression of the intrahepatic portion of the inferior vena cava. Below the liver, the inferior vena cava is not dilated. Miscellaneous: No ventral hernias. Anasarca has developed PELVIS: Genitourinary: Bladder wall thickness is normal. Miscellaneous: Small inguinal hernias. Scrotal and penile edema. Bones: Previously a lytic disease involving the right symphysis pubis and right acetabulum and right iliac wing is now sclerotic. There is mixed lytic and sclerotic disease involving the medial right iliac bone. There is predominantly sclerotic disease involving the left iliac bone. IMPRESSION: 1. Interval development of extensive liver metastatic disease with marked enlargement of the liver and obstruction of left-sided intrahepatic bile ducts. 2. Development of periportal and peripancreatic adenopathy. 3. Interval increase in size of anterior pelvic peritoneal mass. 4. Bony metastatic disease in the pelvis is now predominantly sclerotic. 5. Mild ascites. 6. Compression of the intrahepatic portion of the inferior vena cava. 7. Anasarca, scrotal and penile edema. Dictated by: Chilango Inman M.D. on 09/10/2019 at 16:39 Approved by: Chilango Inman M.D. on 09/10/2019 at 16:52
[2019-09-10 15:44] LABS: Potassium 5.6 mmol/L (3.4-5.1)
[2019-09-10 15:48] LABS: Anisocytosis 1+; Neutrophils Absolute Manual 45180 /uL (3000-5900); Total Cells Counted 100
[2019-09-10] MEDS: SODIUM CHLORIDE 0.9% 500 ML 1000 ML IV (16:45)
[2019-09-10 17:06] LABS: Ammonia (NH3) < 9.0 umol/L (9-30)
[2019-09-10 17:40] VITALS: BP 97/64; PULSE 100; RESP 18; O2SAT 97
== END 2019-09-10 17:40 | disposition home or self-care (01) ==
PROVIDERS: Emergency Provider Emergency Medicine; Family Provider Family Medicine; PCP Family Medicine
DX: C67.9 Malignant neoplasm of bladder, unspecified (principal); C78.7 Secondary malignant neoplasm of liver and intrahepatic bile duct; R60.1 Generalized edema
CPT/HCPCS: 36415; 74177; 80053; 82140; 83690; 85025; 85610; 85730; 93970; 96360; 99283; 99284; J1642; Q9967